=== PATIENT | male | born 1985 | race American Indian/Alaskan Native ===

== ENCOUNTER 2017-06-04 21:07 | Emergency (ER) | payer OTHER ==
[2017-06-04] MEDS ORDERED: PEPCID PO ONE (21:26)
[2017-06-04] MEDS ORDERED: LIDOCAINE VISCOUS 2% PO ONE (21:26)
[2017-06-04] MEDS ORDERED: DECADRON IM ONE (21:26)
[2017-06-04] MEDS ORDERED: MOTRIN PO ONE (21:27)
--- NOTE | 2017-06-04 23:31 | Cat Scan Report ---
FINAL REPORT EXAM: CT NECK WO CON HISTORY: ? fish bone in throat, FB sensation TECHNIQUE: CT neck without contrast PRIORS: None. FINDINGS: No evidence of for pharyngeal tonsillar enlargement no evidence of enlargement of the adenoids. No pathologically enlarged lymph nodes are identified in the neck The major salivary glands are within normal limits No abnormal mass or cyst is seen. The cervical spine is within normal limits. No evidence of significant anterior osteophyte. Proximal esophagus does not appear dilated. No focal inflammatory change seen. Thyroid is not enlarged. No radiopaque or radiolucent foreign bodies are identified. IMPRESSION: Negative CT soft tissue neck No foreign body is identified. If persistent may require endoscopy for further evaluation.
[2017-06-05 01:13] VITALS: BP 118/72
--- NOTE | 2017-06-05 01:31 | Emergency Department Report ---
ED General Adult HPI - General Chief complaint: Chest Pain Stated complaint: CHEST PAIN/MARCELL Time Seen by Provider: 06/05/17 01:20 Source: patient Mode of arrival: Ambulatory Limitations: No Limitations - History of Present Illness Initial comments: 31 years old who stated that he's been eating fish and all of a sudden he has a fish bone in his throat instructed to get it out with his sister but he is not sure if it's out tonight he is complaining of throat pain and left lower chest pain and upper abdominal pain. No nausea, no vomiting, no other complaint. -: Sudden Severity scale (0 -10): 5 - Related Data Previous Rx's Medication Instructions Recorded Last Taken Type Naproxen [Naprosyn] 500 mg PO BID #14 tablet 06/05/17 Unknown Rx Allergies Allergy/AdvReac Type Severity Reaction Status Date / Time No Known Allergies Allergy Unverified 06/04/17 21:20 ED Review of Systems ROS: Stated complaint: CHEST PAIN/MARCELL Other details as noted in HPI Comment: All other systems reviewed and negative Constitutional: denies: chills, fever Respiratory: denies: cough Cardiovascular: chest pain Gastrointestinal: denies: nausea, vomiting, diarrhea ED Past Medical Hx - Past Medical History Previous Medical History?: No - Surgical History Past Surgical History?: No - Social History Smoking Status: Never Smoker Substance Use Type: None - Medications Home Medications: Home Medications Medication Instructions Recorded Confirmed Last Taken Type Naproxen [Naprosyn] 500 mg PO BID #14 tablet 06/05/17 Unknown Rx ED Physical Exam - General Limitations: No Limitations General appearance: alert, in no apparent distress - Head Head exam: Present: normocephalic - ENT ENT exam: Present: normal exam, normal orophraynx, mucous membranes moist, other (no evidence of foreign body) - Neck Neck exam: Present: normal inspection. Absent: tenderness - Respiratory Respiratory exam: Present: normal lung sounds bilaterally. Absent: wheezes, rhonchi, stridor - Cardiovascular Cardiovascular Exam: Present: regular rate, normal rhythm, normal heart sounds - GI/Abdominal GI/Abdominal exam: Present: soft. Absent: distended, tenderness, guarding, rebound, rigid - Extremities Exam Extremities exam: Present: normal inspection - Neurological Exam Neurological exam: Present: alert, oriented X3, CN II-XII intact ED Course Vital Signs 0906/04/17 06/05/17 21:16 21:30 01:11 Temperature 99.1 F Pulse Rate 74 Respiratory 22 20 16 Rate Blood Pressure 139/81 Blood Pressure 118/72 [Left] O2 Sat by Pulse 97 100 Oximetry - Reevaluation(s) Reevaluation #1: 06/05/17 02:57 Patient lying in bed chatting with his friend in no acute distress he does not have any pain. Reviewed his CT neck which she did not show any foreign body that can be seen patient is able to swallow was no difficulty or pain. Chest x- ray and KUB came back negative is no evidence of foreign body that can be seen on x-ray. Patient will be discharged home to follow up with primary care physician as needed. Critical care attestation.: If time is entered above; I have spent that time in minutes in the direct care of this critically ill patient, excluding procedure time. ED Disposition Clinical Impression: Foreign body in esophagus Disposition: DC-01 TO HOME OR SELFCARE Is pt being admited?: No Does the pt Need Aspirin: No Condition: Stable Referrals: PRIMARY CARE, [Primary Care Provider] - 3-5 Days
--- NOTE | 2017-06-05 07:16 | XRay Report ---
AP CHEST: HISTORY: chest pain, ingested a fishbone. AP view of the chest demonstrates a normal mediastinal and cardiac contour with clear lungs and normal bony and soft tissue structures. IMPRESSION: Unremarkable AP chest.
--- NOTE | 2017-06-05 07:19 | XRay Report ---
ABDOMEN: Abdominal pain, ingested foreign body, fish bone. There is gas mixed with stool throughout the colon. There are no dilated loops of bowel or air-fluid levels. There is no free intraperitoneal gas. No radiopaque foreign body consistent with a fishbone is identified. IMPRESSION: Fecal retention. No foreign body detected.
== END 2017-06-05 03:47 | disposition home or self-care (01) ==
LOC: ED 21:07
DX: T18.128A Food in esophagus causing other injury, initial encounter (principal); X58.XXXA Exposure to other specified factors, initial encounter; Y93.89 Activity, other specified; Y92.89 Other specified places as the place of occurrence of the external cause; Y99.8 Other external cause status
CPT/HCPCS: 70490; 71010; 74000; 93005; 93010; 96372; 99284; J1100